=== PATIENT | female | born 1955 | race Caucasian/White ===

== ENCOUNTER 2020-09-07 15:54 | Outpatient (CLI) | payer MEDICARE, BC ==
[~2020-09-07] VITALS: Ht 165.1 cm; Wt 67.2 kg
[2020-09-07] MEDS ORDERED: PRINIVIL20 MG PO (16:32)
[2020-09-07] MEDS ORDERED: ZOCOR 20MG20 MG PO (16:33)
[2020-09-07] MEDS ORDERED: MULTIVITAMIN SEN PO (16:33)
[2020-09-07] MEDS ORDERED: MASON NATURAL2000 IU PO (16:34)
[2020-09-07] MEDS ORDERED: CALCIUM 600MG+D1 TAB PO (16:35)
[2020-09-07 16:59] VITALS: BP 115/75; PULSE 71; TEMP 98.2
== END 2020-09-07 20:11 | disposition home or self-care (01) ==
LOC: EUO 15:54
DX: M81.0 Age-related osteoporosis without current pathological fracture (principal)
CPT/HCPCS: J0897

== ENCOUNTER 2021-03-10 07:46 | Outpatient (CLI) | payer MEDICARE, BC ==
[~2021-03-10] VITALS: Ht 165.1 cm; Wt 71.7 kg
[~2021-03-10 07:46] MED LIST: CALCIUM 600MG+D1 TAB PO; MASON NATURAL2000 IU PO; MULTIVITAMIN SEN PO; PRINIVIL20 MG PO; ZOCOR 20MG20 MG PO
[2021-03-10 14:26] VITALS: BP 118/74; PULSE 76; TEMP 98.9
== END 2021-03-10 18:59 | disposition home or self-care (01) ==
LOC: EUO 07:46
DX: M81.0 Age-related osteoporosis without current pathological fracture (principal)
CPT/HCPCS: J0897

== ENCOUNTER → 2021-11-09 | Outpatient (CLI) | payer MEDICARE, BC ==
[~2021-11-09] VITALS: Ht 165.1 cm; Wt 70.0 kg
[~2021-11-09] MED LIST changes: +COMPLETE SENIOR1 TA1 PO; -MULTIVITAMIN SEN PO
[2021-11-09 14:47] VITALS: BP 105/66; PULSE 77; TEMP 98.3
== END ==
LOC: EUO 13:56
DX: M81.0 Age-related osteoporosis without current pathological fracture (principal)
CPT/HCPCS: J0897

== ENCOUNTER 2023-12-10 14:44 | Outpatient (CLI) | payer MEDICARE, BC ==
[~2023-12-10] VITALS: Ht 165.1 cm; Wt 66.9 kg
[~2023-12-10 14:44] MED LIST changes: +FARXIGA10 PO
[2023-12-10] MEDS ORDERED: Denosumab 60 MG/ML SYRINGE SQ ONE (15:00)
[2023-12-10 15:05] VITALS: BP 109/69; PULSE 80; TEMP 98.4
== END 2023-12-10 15:11 | disposition home or self-care (01) ==
LOC: EUO 14:44
DX: M81.0 Age-related osteoporosis without current pathological fracture (principal)
CPT/HCPCS: J0897